=== PATIENT | female | born 1980 | race Caucasian/White ===

== ENCOUNTER 2021-08-14 22:42 | Observation (INO) ==
[2021-08-14 23:49] LABS: Basophils # 0.1 K/mcL (0.0-0.2); Basophils % 0.5 %; Hematocrit 41.2 % (35.3-44.9); Hemoglobin 14.3 g/dL (11.5-15.4); Immature Granulocytes % 0.2 % (0-4); Lymphocytes % 28.9 %; Mean Corpuscular HGB Conc 34.7 g/dL (31.6-35.5); Mean Corpuscular Hemoglobin 32.8 pg (28.0-33.3); Mean Corpuscular Volume 94.5 fL (83.0-100.0); Mean Platelet Volume 10.5 fL (9.4-12.4); Monocytes # 0.2 K/mcL (0.0-1.3); Monocytes % 1.7 %; Neutrophils # 7.1 K/mcL (1.6-8.9); Platelet Count 290 K/mcL (140-400); Red Blood Count 4.36 M/mcL (3.82-4.97); Red Cell Distribution Width 13.1 % (11.5-14.5); Segmented Neutrophils % 68.7 %; White Blood Count 10.3 K/mcL (4.3-11.1)
[2021-08-15 00:08] LABS: Alanine Aminotransferase 53 Units/L (7-52); Albumin 4.4 g/dL (3.5-5.7); Albumin/Globulin Ratio 1.6 (1.1-2.2); Alkaline Phosphatase 77 Units/L (34-104); Aspartate Amino Transferase 45 Units/L (13-39); BUN/Creatinine Ratio 12 (6-26); Bilirubin,Total 0.3 mg/dL (0.3-1.0); Blood Urea Nitrogen 9 mg/dL (6-20); Calcium 8.6 mg/dL (8.6-10.3); Carbon Dioxide 19 mEq/L (23-29); Chloride 106 mEq/L (98-107); Ethanol 440 mg/dL (Less than 10); Globulin 2.8 g/dL (2.4-3.5); Glucose 77 mg/dL (70-105); Osmolality,Calculated 291 (280-300); Potassium 3.7 mEq/L (3.5-5.1); Sodium 142 mEq/L (136-145); Total Protein 7.2 g/dL (6.4-8.9); eGFR For African Americans > 60 (> 60); eGFR For Non-African Americans > 60 (> 60)
[2021-08-15 00:19] LABS: Amphetamine Screen,Urine Negative ng/mL (Cutoff=1000); Barbiturate Screen,Urine Negative ng/mL (Cutoff=200); Benzodiazepines Screen,Urine Negative ng/mL (Cutoff=200); Cannabinoid Screen,Urine Positive ng/mL (Cutoff = 50); Cocaine Screen,Urine Negative ng/mL (Cutoff= 300); Opiate Screen,Urine Negative ng/mL (Cutoff=300); Phencyclidine Screen,Urine Negative ng/mL (Cutoff=25)
[2021-08-15] MEDS ORDERED: *HR* LORazepam 2 MG/ML VIAL IVP PRN ×2 (01:04)
[2021-08-15] MEDS ORDERED: Acetaminophen 325 MG TABLET PO PRN (01:06)
[2021-08-15] MEDS ORDERED: Naloxone 0.4 MG/ML INJ IVP PRN (01:06)
[2021-08-15] MEDS: *HR* LORazepam 2 MG/ML VIAL IVP PRN ×2 (02:57→15:57)
[2021-08-15] MEDS ORDERED: Ondansetron 4 MG/2 ML VIAL IVP SCH (12:00)
[2021-08-15] MEDS: Ringers Solution, Lactated 1,000 ML IVC SCH (15:58)
[2021-08-15] MEDS: Nicotine 21 MG PATCH.TD24 TD SCH (16:43)
[2021-08-15] MEDS ORDERED: GI Cocktail 40 ML EACH PO ONE (17:24)
[2021-08-15] MEDS: Thiamine (B-1) 100 MG, Folic Acid 1 MG, MVI, adult with vitamin K 10 ML in 0.9 % Sodi... IVPB SCH (18:37)
[2021-08-15] MEDS: QUEtiapine Fumarate 100 MG TABLET PO SCH (20:54)
[2021-08-15] MEDS: Melatonin 3 MG TABLET PO SCH (20:55)
[2021-08-16 02:21] LABS: Basophils % 0.6 %; Eosinophils # 0.2 K/mcL (0.0-0.6); Eosinophils % 2.5 %; Hematocrit 34.7 % (35.3-44.9); Hemoglobin 12.1 g/dL (11.5-15.4); Immature Granulocytes % 0.1 % (0-4); Lymphocytes # 4.2 K/mcL (0.6-4.6); Lymphocytes % 58.4 %; Mean Corpuscular HGB Conc 34.9 g/dL (31.6-35.5); Mean Corpuscular Hemoglobin 33.1 pg (28.0-33.3); Mean Corpuscular Volume 94.8 fL (83.0-100.0); Mean Platelet Volume 10.8 fL (9.4-12.4); Monocytes # 0.5 K/mcL (0.0-1.3); Monocytes % 6.6 %; Neutrophils # 2.3 K/mcL (1.6-8.9); Platelet Count 203 K/mcL (140-400); Red Blood Count 3.66 M/mcL (3.82-4.97); Red Cell Distribution Width 12.9 % (11.5-14.5); Segmented Neutrophils % 31.8 %; White Blood Count 7.2 K/mcL (4.3-11.1)
[2021-08-16 02:39] LABS: BUN/Creatinine Ratio 21 (6-26); Blood Urea Nitrogen 14 mg/dL (6-20); Calcium 8.4 mg/dL (8.6-10.3); Carbon Dioxide 26 mEq/L (23-29); Chloride 104 mEq/L (98-107); Glucose 73 mg/dL (70-105); Magnesium 1.6 mg/dL (1.6-2.6); Osmolality,Calculated 281 (280-300); Sodium 136 mEq/L (136-145); eGFR For African Americans > 60 (> 60); eGFR For Non-African Americans > 60 (> 60)
[2021-08-16] MEDS: Ringers Solution, Lactated 1,000 ML IVC SCH ×2 (09:10→09:12)
[2021-08-16] MEDS: Nicotine 21 MG PATCH.TD24 TD SCH (09:12)
[2021-08-16] MEDS: Magnesium Oxide 400 MG TABLET PO SCH ×2 (09:12→20:45)
[2021-08-16] MEDS: *HR* LORazepam 2 MG/ML VIAL IVP PRN ×2 (09:23→20:50)
[2021-08-16] MEDS: Thiamine (B-1) 100 MG, Folic Acid 1 MG, MVI, adult with vitamin K 10 ML in 0.9 % Sodi... IVPB SCH (17:10)
[2021-08-16] MEDS: Ondansetron 4 MG/2 ML VIAL IVP PRN (17:21)
[2021-08-16] MEDS: QUEtiapine Fumarate 100 MG TABLET PO SCH (20:46)
[2021-08-16] MEDS: Melatonin 3 MG TABLET PO SCH (20:46)
[2021-08-17] MEDS: Ondansetron 4 MG/2 ML VIAL IVP PRN (05:59)
[2021-08-17] MEDS: *HR* LORazepam 2 MG/ML VIAL IVP PRN (06:07)
[2021-08-17 07:20] VITALS: BP 118/85; PULSE 71; TEMP 97.9; O2SAT 96
[2021-08-17] MEDS: Magnesium Oxide 400 MG TABLET PO SCH (07:29)
[2021-08-17] MEDS: Nicotine 21 MG PATCH.TD24 TD SCH (07:30)
[2021-08-17 08:31] LABS: BUN/Creatinine Ratio 11 (6-26); Blood Urea Nitrogen 7 mg/dL (6-20); Calcium 8.9 mg/dL (8.6-10.3); Carbon Dioxide 26 mEq/L (23-29); Chloride 104 mEq/L (98-107); Glucose 86 mg/dL (70-105); Magnesium 1.8 mg/dL (1.6-2.6); Osmolality,Calculated 285 (280-300); Potassium 3.8 mEq/L (3.5-5.1); Sodium 139 mEq/L (136-145); eGFR For African Americans > 60 (> 60); eGFR For Non-African Americans > 60 (> 60)
[2021-08-17 09:16] LABS: Basophils % 0.6 %; Eosinophils # 0.3 K/mcL (0.0-0.6); Eosinophils % 4.4 %; Hematocrit 37.9 % (35.3-44.9); Hemoglobin 13.1 g/dL (11.5-15.4); Immature Granulocytes % 0.2 % (0-4); Lymphocytes # 3.3 K/mcL (0.6-4.6); Lymphocytes % 50.7 %; Mean Corpuscular HGB Conc 34.6 g/dL (31.6-35.5); Mean Corpuscular Hemoglobin 33.2 pg (28.0-33.3); Mean Corpuscular Volume 96.2 fL (83.0-100.0); Mean Platelet Volume 11.5 fL (9.4-12.4); Monocytes # 0.5 K/mcL (0.0-1.3); Monocytes % 7.2 %; Neutrophils # 2.4 K/mcL (1.6-8.9); Platelet Count 188 K/mcL (140-400); Red Blood Count 3.94 M/mcL (3.82-4.97); Red Cell Distribution Width 12.8 % (11.5-14.5); Segmented Neutrophils % 36.9 %; White Blood Count 6.4 K/mcL (4.3-11.1)
== END 2021-08-17 13:14 | disposition home or self-care (01) ==
LOC: EMEROOARM 22:42 → 3NENU 22:42 → SUATTDRO 08-15 01:28 → 3NENU 08-15 02:00
PROVIDERS: ADMIT Internal Medicine; ATTEND Hospitalist